=== PATIENT | male | born 1995 | race Caucasian/White ===

== ENCOUNTER 2016-06-11 09:13 | Emergency (ER) | payer OTHER ==
[2016-06-11 09:19] VITALS: BP 120/69; PULSE 60; RESP 17; TEMP 97.7; O2SAT 94
--- NOTE | 2016-06-11 09:56 | EDPHY ---
H & P Time Seen by Provider: 06/11/16 09:40 HPI/ROS: CHIEF COMPLAINT: Finger laceration HISTORY OF PRESENT ILLNESS: This is a 21-year-old male presenting to the emergency department reports being at work at 9 o'clock this morning using a rotating slicer while cutting vegetables cut the tip of his right index finger. Denies any other injuries. Tetanus is up-to-date REVIEW OF SYSTEMS: Constitutional: No fever. ENT: No sore throat Respiratory: No cough, no shortness of breath Cardiac: No chest pain Musculoskeletal: No back pain. Right index finger pain with laceration Skin: No rashes. Neurological: No headache Smoking Status: Never smoked Physical Exam: General Appearance: Alert and no distress. Eyes: Pupils equal and round no injection. Respiratory: Nonlabored respiratory effort. airway patent Musculoskeletal: Neck is supple and nontender. Extremities: Right index finger tip medial side fat pad avulsion laceration, non-suturable. full range of motion. Positive CMS intact Skin: No rashes Constitutional: Initial Vital Signs Temperature (C) 36.5 C 06/11/16 09:17 Heart Rate 60 06/11/16 09:17 Respiratory Rate 17 06/11/16 09:17 Blood Pressure 120/69 06/11/16 09:17 O2 Sat (%) 94 06/11/16 09:17 O2 Delivery Mode Room Air Allergies/Adverse Reactions: No Known Allergies Allergy (Unverified 06/11/16 09:16) Home Medications: Medication Instructions Recorded NK [No Known Home Meds] 06/11/16 Medical Decision Making Procedures: Procedure: Laceration repair. Verbal consent was obtained from the patient. Avulsion laceration right index finger missing section of tissue unable to repair with sutures. 0.5% bupivacaine 3 ml used for digital block. The wound was irrigated. There were no deep structures involved. Surgifoam applied. Bleeding controlled The procedure was performed by myself. A dressing was applied by our EMT. Patient tolerated procedure well ED Course/Re-evaluation: Discussed plan of care: Digital block, wound irrigation 1030: Wound repair with surgifoam and dressing placed 1045: Discharge home---> stable, discussed discharge instructions Differential Diagnosis: Differential diagnosis considered tendon laceration, nail bed laceration amputation Departure - Departure Disposition: Home, Routine, Self-Care Clinical Impression: Finger laceration with complication Qualifiers: Encounter type: initial encounter Qualified Code(s): S61.219A - Laceration without foreign body of unspecified finger without damage to nail, initial encounter Condition: Good Instructions: Finger Laceration (ED) Additional Instructions: 1. Keep on also dressing on for 48 hours 2. You can take ibuprofen 600mg every 6-8 hours as needed 3. Keep and elevated as needed to decrease pain 4. Keep wound covered while at work, do not get wet 5. Monitor for any signs of infection such as: Redness, red streaks swelling and pus. If this should occur return emergency department antibiotics at that time may be needed Referrals: NONE *PRIMARY CARE P,. [Primary Care Provider] - As per Instructions
== END 2016-06-11 10:52 | disposition home or self-care (01) ==
PROC: 0HQFXZZ Repair Right Hand Skin, External Approach (ICD-10-PCS; principal; 2016-06-11)
DX: S61.210A Laceration without foreign body of right index finger without damage to nail, initial encounter (principal); W27.4XXA Contact with kitchen utensil, initial encounter; Y99.8 Other external cause status; Y93.89 Activity, other specified